=== PATIENT | male | born 1980 ===

== ENCOUNTER 2019-06-10 12:23 | Emergency (ER) | payer OTHER ==
[~2019-06-10] VITALS: Ht 175.3 cm; Wt 72.6 kg
[~2019-06-10 12:23] MED LIST: DRAMAMINE LESS25 MG PO
[2019-06-10] MEDS ORDERED: OSEL75CA PO (14:49)
[2019-06-10] MEDS ORDERED: TUSSI PRES-B L480 ML PO (14:49)
== END 2019-06-10 14:53 | disposition home or self-care (01) ==
LOC: ER 12:23
DX: B34.9 Viral infection, unspecified (principal)